=== PATIENT | female | born 1945 | race Caucasian/White ===

== ENCOUNTER 2019-01-19 20:46 | Emergency (ER) | payer OTHER ==
[~2019-01-19] VITALS: Ht 157.5 cm; Wt 80.7 kg
== END 2019-01-19 22:23 | disposition home or self-care (01) ==
LOC: ER 20:46
DX: M54.2 Cervicalgia (principal)

== ENCOUNTER → 2019-09-02 | Emergency (ER) | payer OTHER | END | disposition left against medical advice (07) | LOC: ER 11:07 | DX: Z53.20 Procedure and treatment not carried out because of patient's decision for unspecified reasons (principal) ==

== ENCOUNTER 2023-10-21 08:35 | Emergency (ER) | payer OTHER ==
[~2023-10-21] VITALS: Ht 167.6 cm; Wt 90.3 kg
[2023-10-21] MEDS ORDERED: LACTULOSE 10 G/15 ML ML PO STA (09:51)
[2023-10-21] MEDS ORDERED: MINERAL OIL 30 ML BLIST.PACK PO STA (09:51)
[2023-10-21] MEDS ORDERED: MAGNESIUM HYDROXIDE 30 ML BLIST.PACK PO STA (09:52)
== END 2023-10-21 13:02 | disposition home or self-care (01) ==
LOC: ER 08:36
DX: R53.81 Other malaise (principal); K59.00 Constipation, unspecified

== ENCOUNTER 2025-05-06 11:05 | Emergency (ER) | payer OTHER ==
[~2025-05-06] VITALS: Ht 167.6 cm; Wt 82.1 kg
[2025-05-06] MEDS ORDERED: ATARAX50 MG PO (12:44)
== END 2025-05-06 18:18 | disposition home or self-care (01) ==
LOC: ER 11:05
DX: F43.20 Adjustment disorder, unspecified (principal); F41.9 Anxiety disorder, unspecified; Z63.4 Disappearance and death of family member